=== PATIENT | male | born 1995 | race Two or more races ===

== ENCOUNTER 2024-12-28 12:29 | Emergency (ER) | payer MEDICAID, OTHER ==
[~2024-12-28] VITALS: Ht 165.1 cm; Wt 71.7 kg
--- NOTE | 2024-12-28 13:44 | ED.PDOC ---
GI ASSESSMENT HPI Comments HPI: 29 y/o M, presents to the ED for CC of abdominal pain. Patient states, he has been experiencing LLQ abdominal pain onset, Friday (12/26/24). Patient describes, pain to be constant and "stabbing" like in nature. Patient denies nausea, vomiting, diarrhea, fever, or chills. No other symptoms or modifying factors are present at this time. Initial Vitals BP: HR: RR: O2 Sat: Temp: Past Medical history: DENIES ANY Past Surgical history: DENIES ANY Medications: DENIES ANY Social History: Denies smoking, ETOH, and drug use. Allergies: NKDA HPI: Poor Historian. Left lower quadrant focal tenderness to palpation intermittent nonradiating no associated nausea or vomiting or diarrhea or fever. No urinary symptoms. REVIEW OF SYSTEMS: CONSTITUTIONAL: Denies acute: fever, diaphoresis, chills, generalized weakness. HEAD: Denies acute: headache, photophobia Eyes: Denies acute: Double vision, vision loss, eye pain, eye discharge. EARS: Denies acute: tinnitus, hearing loss, ear discharge, ear pain, THROAT: Denies acute: sore throat, swelling, difficulty swallowing , pain with swallowing, change in voice. NECK: Denies acute: neck pain, neck swelling, stiff neck. HEART: Denies acute : chest pain, palpitations, LUNGS: Denies acute: SOB, wheezing, cough, hemoptysis ABDOMEN: Denies acute: Nausea, Vomiting, diarrhea, melena , hematemesis, hematochezia SKIN: Denies acute: rash, redness, lesions, itchiness. EXTREMITIES: Denies acute: calf pain, numbness, tingling, weakness, denies pain in extremity. Denies acute: Low back pain. Neuro: Denies acute: focal neurological deficit, motor or sensory focal neurological deficit, tremors, seizure like activity, confusion, dizziness, change in mental status, loss of bowel or bladder function, cauda equina like symptoms. : Denies acute: dysuria, hematuria, flank pain, increase in urinary frequency. PSYCH: Denies acute: hallucination, suicidal ideation, homicidal ideation. PHYSICAL EXAM: General: -----no---acute distress, awake and alert. Head: normocephalic, atraumatic. No raccoon's eyes, no moseley sign. Neck: supple, trachea is midline, no swelling. Throat: Normal phonation. Eyes:, no erythema, no purulent discharge, no proptosis, no icterus. Heart: regular rate, regular rhythm, no significant murmur appreciated. Lungs: no apparent respiratory distress, Able to speak in full sentences. No wheezing, no rhonchi, no crackles. No stridors Clear to auscultation bilaterally. Abdomen: Focal left lower quadrant point tender to palpation, non distended, soft, no guarding, no rebound, + bowel sounds. Neuro: Awake, Alert, oriented to name, self, situation, follows commands GCS=15. Speech is normal. Skin: no petechia, no purpura, no cyanosis, non-pale, not jaundice. Lower extremities: --no - Pitting edema no deformity, no focal swelling, no calf TTP. Makes eye contact. moves all four extremities. Face: no apparent facial droop. No CVA tenderness to percussion bilaterally. Ambulating in the ED independently. ED COURSE: DISCLAIMER: This medical document was created using an electronic medical record system with voice recognition software and computerized dictation system. Although this document has been carefully reviewed, there might still be some phonetic and typographical errors. Occasional wrong-word or "sound-alike" substitutions may have occurred due to the inherent limitations of voice recognition software. These areas are purely typographical due to imperfections of the software programs and do not reflect any compromise in the patient's medical care. Please read the chart carefully and recognize, using context, where these substitutions have occurred. Chief Complaint: Abdominal Pain Time Seen by MD: 13:35 Reviewed Notes: Nurses Notes, Medications, Allergies Allergies: Coded Allergies: NO KNOWN ALLERGIES (Unverified , 12/28/24) Home Meds Active Scripts Metronidazole (Flagyl) 500 Mg Tab, 500 MG PO TID for 10 Days, #30 TAB Prov:IRINA QUEVEDO DO 12/28/24 Ciprofloxacin Hcl (Cipro) 500 Mg Tab, 1 TAB PO BID for 10 Days, #20 TAB Prov:IRINA QUEVEDO DO 12/28/24 Information Source: Patient Mode of Arrival: Ambulatory Timing: Days Duration: Since onset Prehospital treatment: None Quality: None Vomitus: None Stool: Normal Severity: Moderate Recent: None Recent Hx of: None Pain Location: LLQ Modifying Factors: Nothing Associated sign and symptoms: Abdominal Pain Was a procedure done? Was a procedure done?: No GI differential Dx Differential Diagnosis: Bowel Obstruction, Cholangitis, Constipation, Diverticular disease, Inflammatory BD, Other (DDX include but not limited to diverticulitis, colitis, gastroenteritis, acute abdomen, SBO, enteritis, constipation, volvulus, appendicitis, Gallbladder disease, choledocolithiasis, ascending cholangitis, pancreatitis, intraAbdominal mass/neoplasm, hepatitis, UTI, pylonephritis, kidney stone, aneurysm, dissection, Inflammatory bowel disease, gastroparesis, ischemic bowel.Food poisoning, bacterial/p arasitic/viral etiology, trauma, diabetes DKA,) X-Ray, Labs, Meds, VS Vital Signs Date Time Temp Pulse Resp B/P (MAP) Pulse Ox O2 Delivery O2 Flow Rate FiO2 12/28/24 15:45 98.1 109 16 142/109 (120) 98 98.1 12/28/24 13:27 Room Air* 0 21 12/28/24 13:24 98.8 131 18 159/95 (116) 98 98.8 12/28/24 13:24 131 18 98 Room Air 12/28/24 12:31 98.2 134 20 139/98 95 98.2 Lab Test 12/28/24 15:36 12/28/24 13:56 12/28/24 13:30 Range/Units Lactic Acid Level 2.0 2.4 *H 0.4-2.0 mmol/L Urine Color Light-yellow Yellow Urine Clarity Clear Clear Urine pH 5.5 5.0-9.0 Urine Specific [place] 1.017 1.001-1.035 Urine Protein Trace H Negative Urine Ketones Negative Negative Urine Blood Trace H Negative /uL Urine Nitrite Negative Negative Urine Bilirubin Negative Negative Urine Urobilinogen Normal Negative mg/dL Urine Leukocyte Esterase Negative Negative /uL Urine RBC 2 0 - 3 /hpf Urine Microscopic WBC 3 0-3 /HPF Urine Squamous Epithelial Cells None seen <5 /hpf Urine Bacteria Mod H None Seen /hpf Urine Mucus Few None Seen Urine Sperm Present None Seen /hpf Urine Glucose Normal Normal mg/dL White Blood Count 10.4 4.4-10.8 10^3/uL Red Blood Count 5.57 4.5-5.90 10^6/uL Hemoglobin 17.1 13.5-17.5 g/dL Hematocrit 48.3 41.0-53.0 % Mean Corpuscular Volume 86.7 80.0-100.0 fL Mean Corpuscular Hemoglobin 30.7 28.0-32.0 pg Mean Corpuscular Hemoglobin Concent 35.4 32.0-36.0 g/dL Red Cell Distribution Width 13.3 11.8-14.3 % Platelet Count 294 140-450 10^3/uL Mean Platelet Volume 7.8 6.9-10.8 fL Neutrophils (%) (Auto) 85.4 H 37.0-80.0 % Lymphocytes (%) (Auto) 12.0 10.0-50.0 % Monocytes (%) (Auto) 2.3 0.0-12.0 % Eosinophils (%) (Auto) 0.1 0.0-7.0 % Basophils (%) (Auto) 0.2 0.0-2.0 % Neutrophils # (Auto) 8.9 H 1.6-8.6 10 ^3/uL Lymphocytes # (Auto) 1.3 0.4-5.4 10 ^3/uL Monocytes # (Auto) 0.2 0-1.3 10 ^3/uL Eosinophils # (Auto) 0 0-0.8 10 ^3/uL Basophils # (Auto) 0 0-0.2 10 ^3/uL Nucleated Red Blood Cells 0.1 % Sodium Level 143 136-145 mmol/L Potassium Level 3.8 3.5-5.1 mmol/L Chloride Level 107 98-107 mmol/L Carbon Dioxide Level 22 20-31 mmol/L Anion Gap 14 5-15 Blood Urea Nitrogen 7 L 9-23 mg/dL Creatinine 1.00 0.700-1.30 mg/dL Glomerular Filtration Rate Calc 105 >90 mL/min BUN/Creatinine Ratio 7.0 L 10.0-20.0 Serum Glucose 112 H 74-106 mg/dL Calcium Level 9.9 8.7-10.4 mg/dL Total Bilirubin 0.5 0.2-1.0 mg/dL Aspartate Amino Transferase (AST) 20 13-40 U/L Alanine Aminotransferase (ALT) 29 7-40 U/L Alkaline Phosphatase 107 46-116 U/L Total Protein 8.5 H 5.7-8.2 g/dL Albumin 5.2 H 3.2-4.8 g/dL [address] [address] Ph: [phone] DIAGNOSTIC IMAGING Diagnostic Imaging Report : [id number] Signed PATIENT: ANABELLA CANALESOACCT: [id number] UNIT: [id number] : 1995 LOC: ER ROOM / BED: / AGE / SEX: 29 / M ADM STATUS: REG ER SERVICE 1314 ORDERING PHYSICIAN: IRINA QUEVEDO DO PROCEDURE(s): ABPLIV - CT AB PEL WITH IV CON ONLY REASON: LLQ pain ORDER NUMBER(s): [id number], ACCESSION NUMBER(s): [id number] Exam: CT CT AB PEL WITH IV CON ONLY History: LLQ pain COMPARISON: None Technique: Multidetector spiral CT of the abdomen and pelvis was performed from lung bases to pubic symphysis. Intravenous contrast was administered during this examination. Portal venous imaging was obtained. Axial, coronal and sagittal multiplanar reformats were performed by the technologist on a separate workstation. Radiation Dose : 1. Abdomen/Pelvis: CTDIvol 10.5 mGy, DLP 570 mGy*cm. CONTRAST: Type of contrast: Omnipaque Contrast injected: 100 ml Findings: Lung Bases: No acute or significant lung base finding. Normal heart size. No pleural or pericardial effusion. Liver: The liver is normal in size. No focal lesions. Normal hepatic vascular enhancement. Diffuse steatosis. Gallbladder and Biliary Tree: Unremarkable Spleen: Unremarkable Pancreas: The pancreas is normal in appearance without focal lesions or abnormal enhancement. Adrenal Glands: Unremarkable Kidneys: No hydronephrosis. Bladder: Unremarkable Bowel: The stomach is grossly normal in appearance. Focal inflammation is seen in the sigmoid colon with adjacent fat stranding, possibly reflecting diverticulitis versus epiploic appendagitis. Normal appendix is visualized in the right lower quadrant without findings of appendicitis. Ascites: Absent Lymphadenopathy: No mesenteric, retroperitoneal or periportal lymphadenopathy. Abdominal Wall and Mesentery: Unremarkable. Vasculature: The visualized abdominal aorta is normal in size and caliber. Abdominal and pelvic vessels demonstrate normal enhancement. Pelvic Organs: Unremarkable Musculoskeletal: No aggressive focal bony lesions, acute fractures or dislocat ion. IMPRESSION: 1. Focal inflammation is seen in the sigmoid colon with adjacent fat stranding, possibly reflecting diverticulitis versus epiploic appendagitis. 2. Hepatic steatosis. Radiation optimization: All CT scans at this facility use at least one of these dose optimization techniques: automated exposure control mA and/or kV adjustment per patient size (includes targeted exams where dose is matched to clinical indication) or iterative reconstruction. ATED BY: ROBERT BURK MD DICTATED DATE/TIME: 12/28/241441 SIGNED BY: ROBERT BURK MD SIGNED DATE/TIME: 12/28/241441 CC: Time of 1ST Reevaluation: 14:05 Reevaluation 1ST: Unchanged Patient Education/Counseling: Diagnosis, Treatment Family Education/Counseling: No Family Present Comments MDM: patient presented with the above HPI.---abdominal pain---workup was initiated. patient was found with the above mentioned diagnosis. the following medications were ordered: please refer to order lists of meds and tests obtained by myself Dr. Quevedo. Patient ED course and VS have been stabilized. Patient has been reassessed in the ED and remained in a stable condition. Pertinent incidental findings were discussed with the patient and/or family. Patient/family voices understanding and is agreeable with plan. Patient has been observed in the ED adequate length of time to insure improvement/stability. Escalation of care considered: Consideration of escalation to observation or admission Patient was given oral antibiotics here and sent home with a prescription of antibiotics. Patient was DISCHARGED home in a stable condition. All the reports of any imaging studies that were ordered by myself were reviewed by myself. 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 ) Ct Ab Pel With Iv Con Only (12/28/24 13:14) Vital Signs Date Time Temp Pulse Resp B/P (MAP) Pulse Ox O2 Delivery O2 Flow Rate FiO2 12/28/24 15:45 98.1 109 16 142/109 (120) 98 98.1 12/28/24 13:27 Room Air* 0 21 12/28/24 13:24 98.8 131 18 159/95 (116) 98 98.8 12/28/24 13:24 131 18 98 Room Air 12/28/24 12:31 98.2 134 20 139/98 95 98.2 Laboratory Tests Test 12/28/24 13:30 12/28/24 15:36 Lactic Acid Level 2.4 mmol/L (0.4-2.0) *H 2.0 mmol/L (0.4-2.0) White Blood Count 10.4 10^3/uL (4.4-10.8) Departure 1 Departure Time of Disposition: 14:59 Impression: Primary Impression: Diverticulitis of intestine Additional Impression: Epiploic appendagitis Disposition: 01 HOME / SELF CARE / HOMELESS Condition: Stable Additional Instructions: Additional instructions: Please read all instructions provided in this packet carefully. You MUST follow-up with your primary care/family doctor in 1 to 2 days. If you are unable to see your primary care/family doctor, please return to our emergency room for re-assessment and re-evaluation in 1 to 2 days. Return to the emergency room here in our facility or to the nearest ER [facility] if your symptoms change or worsen. CONSULTATIONS: you MUST Follow-up for consultation as soon as possible with: --gastroenterology in 1-2 days. Please call for appointment. You MUST call the consultants office yourself to make an appointment. You may need to arrange that through your insurance and/or your primary/family doctor. If you are unable to see the career development consultant in 1 to 2 days, you must return to our emergency room (or any other ER of your choice) for re-assessment and re-evaluation. Adequate fluid hydration. Although you have been discharged from the Emergency Department, this does not mean that you have a "clean bill of health". No definitive diagnosis for your symptoms has been made today. It is possible that you are in the process of developing a serious illness. This is why you must return to the ED without fail if any new or worsening symptoms develop. Increase fiber intake. Below is a copy of your radiological report for follow up: [facility] [place] [address] [facility] [address] Ph: [phone] DIAGNOSTIC IMAGING Diagnostic Imaging Report : [id number] Signed PATIENT: DIAMOND CANALES ACCT: [id number] UNIT: [id number] : 1995 LOC: ER ROOM / BED: / AGE / SEX: 29 / M ADM STATUS: REG ER SERVICE 1314 ORDERING PHYSICIAN: IRINA QUEVEDO DO PROCEDURE(s): ABPLIV - CT AB PEL WITH IV CON ONLY REASON: LLQ pain ORDER NUMBER(s): [id number], ACCESSION NUMBER(s): [id number] Exam: CT CT AB PEL WITH IV CON ONLY History: LLQ pain COMPARISON: None Technique: Multidetector spiral CT of the abdomen and pelvis was performed from lung bases to pubic symphysis. Intravenous contrast was administered during this examination. Portal venous imaging was obtained. Axial, coronal and sagittal multiplanar reformats were performed by the technologist on a separate workstation. Radiation Dose : 1. Abdomen/Pelvis: CTDIvol 10.5 mGy, DLP 570 mGy*cm. CONTRAST: Type of contrast: Omnipaque Contrast injected: 100 ml Findings: Lung Bases: No acute or significant lung base finding. Normal heart size. No pleural or pericardial effusion. Liver: The liver is normal in size. No focal lesions. Normal hepatic vascular enhancement. Diffuse steatosis. Gallbladder and Biliary Tree: Unremarkable Spleen: Unremarkable Pancreas: The pancreas is normal in appearance without focal lesions or abnormal enhancement. Adrenal Glands: Unremarkable Kidneys: No hydronephrosis. Bladder: Unremarkable Bowel: The stomach is grossly normal in appearance. Focal inflammation is seen in the sigmoid colon with adjacent fat stranding, possibly reflecting diverticulitis versus epiploic appendagitis. Normal appendix is visualized in the right lower quadrant without findings of appendicitis. Ascites: Absent Lymphadenopathy: No mesenteric, retroperitoneal or periportal lymphadenopathy. Abdominal Wall and Mesentery: Unremarkable. Vasculature: The visualized abdominal aorta is normal in size and caliber. Abdominal and pelvic vessels demonstrate normal enhancement. Pelvic Organs: Unremarkable Musculoskeletal: No aggressive focal bony lesions, acute fractures or dislo cation. IMPRESSION: 1. Focal inflammation is seen in the sigmoid colon with adjacent fat stranding, possibly reflecting diverticulitis versus epiploic appendagitis. 2. Hepatic steatosis. Radiation optimization: All CT scans at this facility use at least one of these dose optimization techniques: automated exposure control mA and/or kV adjustment per patient size (includes targeted exams where dose is matched to clinical indication) or iterative reconstruction. ATED BY: ROBERT BURK MD DICTATED DATE/TIME: 12/28/24 144 SIGNED BY: ROBERT BURK MD SIGNED DATE/TIME: 12/28/24 144 CC: e-Prescriptions Metronidazole (Flagyl) 500 Mg Tab 500 MG PO TID for 10 Days, #30 TAB Prov: IRINA QUEVEDO DO 12/28/24 Ciprofloxacin Hcl (Cipro) 500 Mg Tab 1 TAB PO BID for 10 Days, #20 TAB Prov: IRINA QUEVEDO DO 12/28/24 Discharged With: Self Critical Care Note Critical Care Time?: No I personally scribed for IRINA QUEVEDO DO ([email or web address]) on 12/28/24 at 13:44. Electronically submitted by Sherrie Lagos ([email or web address]). I personally scribed for IRINA QUEVEDO DO ([email or web address]) on 12/28/24 at 14:59. Electronically submitted by Sherrie Lagos ([email or web address]). IRINA QUEVEDO DO Dec 28, 2024 13:44
[2024-12-28 13:45] LABS: Hematocrit 48.3 % (41.0-53.0); Hemoglobin 17.1 g/dL (13.5-17.5); Mean Corpuscular Hemoglobin 30.7 pg (28.0-32.0); Mean Corpuscular Volume 86.7 fL (80.0-100.0); Nucleated Red Blood Cells % 0.1 %
[2024-12-28 13:58] LABS: Alanine Aminotransferase 29 U/L (7-40); Albumin 5.2 g/dL (3.2-4.8); Alkaline Phosphatase 107 U/L (46-116); Anion Gap 14 (5-15); BUN/Creatinine Ratio 7.0 (10.0-20.0); Bilirubin, Total 0.5 mg/dL (0.2-1.0); Blood Urea Nitrogen 7 mg/dL (9-23); Calcium 9.9 mg/dL (8.7-10.4); Carbon Dioxide 22 mmol/L (20-31); Chloride 107 mmol/L (98-107); Glucose 112 mg/dL (74-106); Potassium 3.8 mmol/L (3.5-5.1); Sodium 143 mmol/L (136-145); Total Protein 8.5 g/dL (5.7-8.2)
[2024-12-28 14:06] LABS: Urine Protein, UAD TRACE (Negative)
[2024-12-28 14:14] LABS: Lactic Acid w/Reflex 2.4 mmol/L (0.4-2.0)
[2024-12-28] MEDS: IOHEXOL 300 MG/ML 100ML BOTTLE IJ ONE (14:35)
[2024-12-28] MEDS: SODIUM CHLORIDE 0.9% 1,000 ML IV ONE (14:35)
--- NOTE | 2024-12-28 14:45 | DVH ---
Exam: CT CT AB PEL WITH IV CON ONLY History: LLQ pain COMPARISON: None Technique: Multidetector spiral CT of the abdomen and pelvis was performed from lung bases to pubic symphysis. Intravenous contrast was administered during this examination. Portal venous imaging was obtained. Axial, coronal and sagittal multiplanar reformats were performed by the technologist on a separate workstation. Radiation Dose : 1. Abdomen/Pelvis: CTDIvol 10.5 mGy, DLP 570 mGy*cm. CONTRAST: Type of contrast: Omnipaque Contrast injected: 100 ml Findings: Lung Bases: No acute or significant lung base finding. Normal heart size. No pleural or pericardial effusion. Liver: The liver is normal in size. No focal lesions. Normal hepatic vascular enhancement. Diffuse steatosis. Gallbladder and Biliary Tree: Unremarkable Spleen: Unremarkable Pancreas: The pancreas is normal in appearance without focal lesions or abnormal enhancement. Adrenal Glands: Unremarkable Kidneys: No hydronephrosis. Bladder: Unremarkable Bowel: The stomach is grossly normal in appearance. Focal inflammation is seen in the sigmoid colon with adjacent fat stranding, possibly reflecting diverticulitis versus epiploic appendagitis. Normal appendix is visualized in the right lower quadrant without findings of appendicitis. Ascites: Absent Lymphadenopathy: No mesenteric, retroperitoneal or periportal lymphadenopathy. Abdominal Wall and Mesentery: Unremarkable. Vasculature: The visualized abdominal aorta is normal in size and caliber. Abdominal and pelvic vessels demonstrate normal enhancement. Pelvic Organs: Unremarkable Musculoskeletal: No aggressive focal bony lesions, acute fractures or dislocation. IMPRESSION: 1. Focal inflammation is seen in the sigmoid colon with adjacent fat stranding, possibly reflecting diverticulitis versus epiploic appendagitis. 2. Hepatic steatosis. Radiation optimization: All CT scans at this facility use at least one of these dose optimization techniques: automated exposure control mA and/or kV adjustment per patient size (includes targeted exams where dose is matched to clinical indication) or iterative reconstruction.
[2024-12-28] MEDS: HYDROcodone-ACET 5/325MG TAB PO ONE (15:00)
[2024-12-28] MEDS ORDERED: CIPR-173 PO (15:05)
[2024-12-28] MEDS ORDERED: METR-344 PO (15:05)
[2024-12-28] MEDS: metroNIDAZOLE 500 MG TAB PO ONE (15:15)
[2024-12-28] MEDS: CIPROFLOXACIN HCL 500 MG TAB PO ONE (15:15)
[2024-12-28 15:45] VITALS: BP 142/109; PULSE 109; RESP 16; TEMP 98.1; O2SAT 98
== END 2024-12-28 16:41 | disposition home or self-care (01) ==
LOC: ER 12:29
DX: K57.92 Diverticulitis of intestine, part unspecified, without perforation or abscess without bleeding (principal); K65.9 Peritonitis, unspecified; Z79.899 Other long term (current) drug therapy
CPT/HCPCS: 36415; 74177; 80053; 81001; 83605; 85025; 96360; 99285; J7030; Q9967